=== PATIENT | female | born 1960 ===

== ENCOUNTER 2019-10-17 08:55 | Outpatient (CLI) | payer BC ==
--- NOTE | 2019-10-17 09:49 | MMO ---
Bilateral MAMMO Bilat Screen [facility]. CLINICAL HISTORY: Patient is 59 years old and is seen for screening. The patient has no family history of breast cancer. The patient has no personal history of cancer. VIEWS: The views performed were: bilateral craniocaudal with tomosynthesis and bilateral mediolateral oblique with tomosynthesis. FILMS COMPARED: The present examination has been compared to prior imaging studies performed at [facility] on 06/04/2014 and 08/06/2016, and at [place], [place] on 05/26/2009 and 03/31/2012. This study has been interpreted with the assistance of computer-aided detection. MAMMOGRAM FINDINGS: There are scattered fibroglandular densities. There are no suspicious masses, suspicious calcifications, or new areas of architectural distortion. IMPRESSION: THERE IS NO MAMMOGRAPHIC EVIDENCE OF MALIGNANCY. A ROUTINE FOLLOW-UP MAMMOGRAM IN 1 YEAR IS RECOMMENDED. THE RESULTS OF THIS EXAM WERE SENT TO THE PATIENT. ACR BI-RADS Category 1 - Negative MAMMOGRAPHY NOTE: 1. A negative mammogram report should not delay a biopsy if a dominant of clinically suspicious mass is present. 2. Approximately 10% to 15% of breast cancers are not detected by mammography. 3. Adenosis and dense breasts may obscure an underlying neoplasm. Reported by: DEMETRIS MOYA MD Electonically Signed: [id number]
--- NOTE | 2019-10-17 10:29 | BD ---
BONE DENSITOMETRY USING DEXA: Date: 10/17/19 HISTORY: Postmenopausal screening for osteoporosis. FINDINGS: Lumbar Spine: BMD (g/cm2) L1 0.836 T-Score: -1.4 Z-Score: -0.3 L2 0.882 T-Score: -1.3 Z-Score: -0.1 L3 0.915 T-Score: -1.5 Z-Score: -0.3 L4 0.946 T-Score: -1.0 Z-Score: 0.3 L1-L4 0.899 T-Score: -1.3 Z-Score: -0.1 Femoral Neck: 0.631 T-Score: -2.0 Z-Score: -0.8 Total Femur: 0.846 T-Score: -0.8 Z-Score: 0.0 The 10 year fracture risk for a major osteoporotic fracture is 13% and for a hip fracture is 1.8%. IMPRESSION: Osteopenia. POS: EDUARDO
== END 2019-10-17 08:56 | disposition home or self-care (01) ==
LOC: BICMAMMO 08:55
PROVIDERS: ATTEND Family Medicine
DX: Z12.31 Encounter for screening mammogram for malignant neoplasm of breast (principal); Z13.820 Encounter for screening for osteoporosis; Z78.0 Asymptomatic menopausal state; M85.89 Other specified disorders of bone density and structure, multiple sites
CPT/HCPCS: 77063; 77067; 77080

== ENCOUNTER 2022-03-10 14:25 | Outpatient (CLI) | payer BC | END 2022-03-10 14:26 | disposition home or self-care (01) | LOC: DTY/OP 14:25 | PROVIDERS: ATTEND Family Medicine | DX: E78.5 Hyperlipidemia, unspecified (principal) | CPT/HCPCS: 97802 ==